=== PATIENT | female | born 1980 | race Caucasian/White ===

== ENCOUNTER → 2020-01-21 08:18 | Outpatient (CLI) | payer OTHER, SELFPAY ==
[2020-01-22 09:01] LABS: COVID19 Sendout Not Detected (Not Detect)
== END ==
PROVIDERS: PCP Internal Medicine; Visit Provider Physician Assistant
DX: Z11.59 Encounter for screening for other viral diseases (principal)
CPT/HCPCS: 87635

== ENCOUNTER → 2020-04-12 08:47 | Outpatient (ROUT) | payer OTHER, SELFPAY ==
[2020-04-12 09:41] LABS: COVID19 -Nasal RAPID Negative (Negative)
== END ==
PROVIDERS: PCP Internal Medicine; Visit Provider Family Medicine
DX: Z20.828 Contact with and (suspected) exposure to other viral communicable diseases (principal)
CPT/HCPCS: 87635

== ENCOUNTER → 2020-09-30 12:51 | Outpatient (ROUT) | payer OTHER, SELFPAY ==
[2020-09-30 13:15] LABS: COVID19 -Nasal RAPID Negative (Negative)
== END ==
PROVIDERS: PCP Internal Medicine; Visit Provider Family Medicine
DX: Z20.822 Contact with and (suspected) exposure to COVID-19 (principal)
CPT/HCPCS: 87635

== ENCOUNTER 2021-06-18 12:44 | Emergency (ER) | payer SELFPAY ==
[2021-06-18 13:02] VITALS: BP 165/88; PULSE 88; RESP 18; TEMP 36.7; O2SAT 98; BMI 31.4
--- NOTE | 2021-06-18 13:13 | ED.BACK ---
HPI - Back Pain/Injury <ENRIQUETA Nicolas - Last Filed: 06/18/21 14:25> General Chief Complaint: Back Pain/Injury Stated Complaint: Back pain x 7 days Time Seen by Provider: 06/18/21 13:04 Source: patient History of Present Illness HPI Narrative: 40-year-old female presents to the emergency department with gradual onset left lumbosacral pain which goes across her buttocks and does not radiate anywhere else and it started approximately 1 week ago. She denies any trauma, injury, states that it has worsened this week and now any movement causes spasm and muscular pain. Patient denies any weakness, numbness or tingling, difficulty ambulating, incontinence, dysuria, fever, abdominal pain, or other. She is a current everyday smoker, denies any neck pain or headache. Patient does not have a primary care provider, she has not had any imaging completed of her spine, she denies any sensation changes in her leg, denies any rash, fever, difficulty ambulating. Related Data Previous Rx's Medication Instructions Recorded lidocaine 5 % topical patch 1 patch TOPICAL DAILY PRN #15 ea 06/18/21 meloxicam 7.5 mg tablet (Mobic) 7.5 mg PO DAILY #14 tab 06/18/21 methocarbamol 500 mg tablet 500 mg PO TID PRN #20 tab 06/18/21 Allergies Allergy/AdvReac Type Severity Reaction Status Date / Time ondansetron Allergy Intermediate HIVES Verified 06/18/21 13:06 Penicillins Allergy Mild A CHILD Verified 06/18/21 13:06 amoxicillin Allergy Unknown Verified 06/18/21 13:06 Review of Systems <ENRIQUETA Nicolas - Last Filed: 06/18/21 14:25> Review of Systems Narrative: General: denies fever, chills, malaise, sweats, fatigue Head/Neck: denies headache, neck pain, dizziness Eyes: denies visual changes, eye pain Cardio: denies chest pain, palpitations, edema Respiratory: denies dyspnea, cough, orthopnea GI: denies abdominal pain, nausea, vomiting, or diarrhea : denies dysuria, hematuria, urinary retention, frequency or incontinence MSK: denies joint pain, muscle weakness, endorses left-sided low back pain laterally across her hip and down her buttock Skin: denies rash, itching, skin lesions or other Neuro: denies numbness, tingling Patient History <ENRIQUETA Nicolas - Last Filed: 06/18/21 14:25> Surgical History Status post delivery Status post hernia repair Status post knee surgery Family History Father Age: 66 Drug abuse Grandmother Age: 91 Breast cancer Mother Age: 66 History of drug abuse in remission Anxiety Social History Smoking Status: Former smoker Smoking Status: Former smoker tobacco type: cigarettes alcohol intake frequency: 0-2 drinks per day Alcohol type: wine and hard liquor Substance Use Type: crack/cocaine Exam <ENRIQUETA Nicolas - Last Filed: 06/18/21 14:25> Narrative Exam Narrative: Independently reviewed vitals signs and nursing notes. General: Cooperative, comfortable, in no acute distress, well developed and well groomed Head/Neck: Normal visual inspection and supple, atraumatic, no JVD or lymphadenopathy. Normal facial exam Eyes: Pupils equal round and reactive, EOMI, conjunctiva normal, no scleral icterus or injections Nose: External nose normal, nares patent, no rhinorrhea, without purulent drainage Mouth/Throat: uvula midline, moist mucus membranes Cardio: Regular rate and rhythm, no peripheral edema, warm extremities Respiratory: Normal respiratory effort, able to speak in complete sentences without audible wheezing, stridor, or rales. No retractions. GI: Abdomen soft, nontender to palpation x4 quadrants, nondistended, no masses or exquisite tenderness with exam, no flank tenderness MSK: Moves all extremities, neurovascularly intact, no point tenderness along the left hip or low back, no spinal tenderness to palpation, no open wound, left buttock pain which patient describes as generalized, Skin: Normal capillary refill, no rash Neuro: Normal speech and cognition, normal gait, A&O x3, tone normal, moves all extremities, equal strength Psych: Mental status is grossly normal, speech is clear, congruent mood, normal affect Initial Vital Signs Initial Vital Signs: Vital Signs Temperature 98.0 F 06/18/21 13:02 Pulse Rate 88 06/18/21 13:02 Respiratory Rate 18 06/18/21 13:02 Blood Pressure 165/88 H 06/18/21 13:02 Pulse Oximetry 98 06/18/21 13:02 <Dalia Arellano DO - Last Filed: 06/18/21 16:38> Initial Vital Signs Initial Vital Signs: Vital Signs Temperature 98.0 F 06/18/21 13:02 Pulse Rate 88 06/18/21 13:02 Respiratory Rate 18 06/18/21 13:02 Blood Pressure 165/88 H 06/18/21 13:02 Pulse Oximetry 98 06/18/21 13:02 Course <ENRIQUETA Nicolas - Last Filed: 06/18/21 14:25> Orders Ordered: ED Orders 06/18/21 13:14 XR lumbar spine 2-3V Stat Discontinued Medications Hydrocodone Bitart/Acetaminophen (Hydrocodone/Acet 5/325 Tablet) 1 tab PO NOW ONE Stop: 06/18/21 13:13 Last Admin: 06/18/21 13:21 Dose: 1 tab Documented by: ALKA Lidocaine (Lidocaine Patch 1 Each Adh..Patch) 1 each TOP NOW ONE Stop: 06/18/21 13:13 Last Admin: 06/18/21 13:21 Dose: 1 each Documented by: ALKA Methocarbamol (Methocarbamol 500 Mg Tablet) 500 mg PO NOW ONE Stop: 06/18/21 13:13 Last Admin: 06/18/21 13:21 Dose: 500 mg Documented by: ALKA Vital Signs Vital signs: Vital Signs - 8 hr 06/18/21 13:02 06/18/21 14:28 Temperature 98.0 F Pulse Rate 88 80 Respiratory Rate 18 16 Blood Pressure 165/88 H 135/80 Pulse Oximetry 98 99 <Dalia Arellano DO - Last Filed: 06/18/21 16:38> Orders Ordered: ED Orders 06/18/21 13:14 XR lumbar spine 2-3V Stat Discontinued Medications Hydrocodone Bitart/Acetaminophen (Hydrocodone/Acet 5/325 Tablet) 1 tab PO NOW ONE Stop: 06/18/21 13:13 Last Admin: 06/18/21 13:21 Dose: 1 tab Documented by: ALKA Lidocaine (Lidocaine Patch 1 Each Adh..Patch) 1 each TOP NOW ONE Stop: 06/18/21 13:13 Last Admin: 06/18/21 13:21 Dose: 1 each Documented by: ALKA Methocarbamol (Methocarbamol 500 Mg Tablet) 500 mg PO NOW ONE Stop: 06/18/21 13:13 Last Admin: 06/18/21 13:21 Dose: 500 mg Documented by: ALKA Vital Signs Vital signs: Vital Signs - 8 hr 06/18/21 13:02 06/18/21 14:28 Temperature 98.0 F Pulse Rate 88 80 Respiratory Rate 18 16 Blood Pressure 165/88 H 135/80 Pulse Oximetry 98 99 MDM - Back Pain/Injury <Umu Painting [facility] - Last Filed: 06/18/21 14:25> Imaging Data lumbar xr: Radiologist's Impression: PROCEDURE:? XR LUMBAR SPINE 2-3V ? INDICATIONS:? lumbosacral pain on rt, no injury ? TECHNIQUE:? 3 views of the lumbar spine were acquired.? ? COMPARISON:? None. ? FINDINGS:? ? Bones:? 5 [id number] vertebrae are present.? There is straightening of normal lordosis.? There is trace retrolisthesis L2 on L3.? Moderate to severe disc and foraminal narrowing are present at L5-S1.? Small anterior osteophytes are present most severe at T12.? No vertebral body compression fractures.? No suspicious bony lesions.? ? Soft tissues:? Overlying bowel gas pattern is normal.? No suspicious soft tissue calcifications.? ? ? IMPRESSION:? Early degenerative changes most notable at L5-S1. ? ? Dictated by: Rocío Biswas M.D. on 06/18/2021 at 14:01 ? ? Approved by: Rocío Biswas M.D. on 06/18/2021 at 14:02 ? [facility] Narrative Medical decision making narrative: 40-year-old female presents to the emergency department chief complaint of left lower back pain which started gradually and has been worsening over the last week with muscle spasms on the left side without sciatica. Patient has been taking ibuprofen 100 mg every 6 hours at home without relief. She is a current everyday smoker, does not have a current PCP, denies any recent trauma, dysuria, fall, or known injury, has been without a fever. She has not had any weakness, denies any sensation changes or paresthesia. Urine dipWithout abnormality, negative, x-ray lumbar spine shows degenerative changes L5-S1 with foraminal narrowing at L5-S1 and small anterior osteophytes at T12. No vertebral body compression fractures or suspicious bony lesions. Patient was given a primary care provider number to establish care and follow-up with PCP for outpatient physical therapy and advanced imaging. Patient was given Robaxin, lidocaine patch, and hydrocodone in the emergency department. She was prescribed Robaxin, lidocaine patches, and Mobic and given instructions on how to take with food and water and not to combine with ibuprofen. Multiple etiologies of back pain considered including; Epidural abscess, cauda equina, mass occupying lesion, lumbar fracture, intra-abdominal pathology chronic neuropathic pain and other considered. Patient is appropriate and amenable to discharge home. Vital signs are stable on repeat examination is unremarkable. Patient has been informed of results. Patient has been given strict return to ER precautions for any new or worsening symptoms. Patient understands to follow up closely with outpatient providers as instructed. Patient understands plan and agrees to discharge home. All questions and concerns answered at this time. Discharge Plan Departure Patient Disposition: Home Clinical Impression: Strain of lumbar region Qualifiers: Encounter type: initial encounter Qualified Code(s): S39.012A - Strain of muscle, fascia and tendon of lower back, initial encounter Instructions: DI for Low Back Pain, DI for Back Spasm, DI for Back Strain or Sprain Activity Restrictions/Additional Instructions: *You have been diagnosed with a spasm of your low back. Please call [phone] to establish a primary care provider. Please continue using the lidocaine patches for the next few days until your pain subsides. I have prescribed you a strong anti-inflammatory called Mobic, please do not take any ibuprofen with this and eat food and drink water. You may take 1 of these per day for the next 2 weeks with food and water. For muscle spasms, you may use the methocarbamol every 8 hours as needed. Please use heat 2 to 3 times a day, rest, decrease her activity level so the flare can calm down. If this is still ongoing after you have tried all of these things, please follow-up and establish care with a primary care provider so that you can try physical therapy and get in order for advanced imaging if necessary. I hope you feel better soon. I have appended your x-ray results below. The impressions says degenerative changes at the L5-S1 junction which is in ice way of saying arthritis. Please establish care with a primary care provider and follow up with physical therapy. They may be able to refer you to orthopedics if this is ongoing. *What to do: *Please continue to take your regular medications as directed. [ ] New medication prescriptions sent to your pharmacy: [ ] [ ] New medication written as a paper prescription [ ] No new medications given *Please follow up with your primary care provider in 2-3 days, call for an appointment. Let them know you were seen in the Emergency Department and that we ask that you be seen in follow up. We will electronically transmit a record of today's note if your PCP is in our system *If you do not have a primary care provider please contact the [facility] Resource line at [phone]. They will ask some questions about your medical history and help get you set up with a doctor in the community. *Return to Emergency Department if you should have any new, worsening or concerning symptoms, such as [fever greater than 101F, chills, worsening pain, persistent vomiting or other bothersome symptoms] PROCEDURE:? XR LUMBAR SPINE 2-3V ? INDICATIONS:? lumbosacral pain on rt, no injury ? TECHNIQUE:? 3 views of the lumbar spine were acquired.? ? COMPARISON:? None. ? FINDINGS:? ? Bones:? 5 rud-[id number]-[id number] vertebrae are present.? There is straightening of normal lordosis.? There is trace retrolisthesis L2 on L3.? Moderate to severe disc and foraminal narrowing are present at L5-S1.? Small anterior osteophytes are present most severe at T12.? No vertebral body compression fractures.? No suspicious bony lesions.? ? Soft tissues:? Overlying bowel gas pattern is normal.? No suspicious soft tissue calcifications.? ? ? IMPRESSION:? Early degenerative changes most notable at L5-S1. ? ? Dictated by: Rocío Biswas M.D. on 06/18/2021 at 14:01 ? ? Approved by: Rocío Biswas M.D. on 06/18/2021 at 14:02 ? Prescriptions: New lidocaine 5 % adhesive patch,medicated 1 patch topical DAILY PRN (Reason: back pain) Qty: 15 0RF Rx Instructions: leave on most painful area for up to 12 hrs methocarbamol 500 mg tablet 500 mg PO TID PRN (Reason: muscle spasms) Qty: 20 0RF meloxicam [Mobic] 7.5 mg tablet 7.5 mg PO DAILY Qty: 14 0RF <Dalia Arellano, - Last Filed: 06/18/21 16:38> Cosign ED Attending Ronny Attestation: I was immediately available in the department for consultation. Documentation has been reviewed.
--- NOTE | 2021-06-18 13:14 | DI.RAD.S_ITS ---
PROCEDURE: XR LUMBAR SPINE 2-3V INDICATIONS: lumbosacral pain on rt, no injury TECHNIQUE: 3 views of the lumbar spine were acquired. COMPARISON: None. FINDINGS: Bones: 5 [id number] vertebrae are present. There is straightening of normal lordosis. There is trace retrolisthesis L2 on L3. Moderate to severe disc and foraminal narrowing are present at L5-S1. Small anterior osteophytes are present most severe at T12. No vertebral body compression fractures. No suspicious bony lesions. Soft tissues: Overlying bowel gas pattern is normal. No suspicious soft tissue calcifications. IMPRESSION: Early degenerative changes most notable at L5-S1. Dictated by: Rocío Biswas M.D. on 06/18/2021 at 14:01 Approved by: Rocío Biswas M.D. on 06/18/2021 at 14:02
[2021-06-18] MEDS: methocarbamoL 500 MG TABLET PO (13:21)
[2021-06-18] MEDS: LIDOCAINE PATCH 1 EACH ADH..PATCH TOP (13:21)
[2021-06-18] MEDS: HYDROCODONE/ACET 5/325 TABLET 1 TAB PO (13:21)
[2021-06-18 14:28] VITALS: BP 135/80; PULSE 80; RESP 16; O2SAT 99
== END 2021-06-18 14:28 | disposition home or self-care (01) ==
PROVIDERS: Emergency Provider Nurse Practitioner Critical Care Medicine
DX: S39.012A Strain of muscle, fascia and tendon of lower back, initial encounter (principal); X58.XXXA Exposure to other specified factors, initial encounter
CPT/HCPCS: 72100; 99283; 99284

== ENCOUNTER → 2023-07-16 17:38 | Outpatient (CLI) | payer OTHER, SELFPAY ==
--- NOTE | 2023-07-16 17:41 | DI.MG.S_ITS ---
BILATERAL DIGITAL SCREENING MAMMOGRAM 3D/2D WITH CAD: 07/16/2023 CLINICAL: Baseline exam. Routine screening. Family History of Breast Cancer. No prior exams were available for comparison. There are scattered areas of fibroglandular density in both breasts (category b / 25%-50% glandular tissue). Current study was also evaluated with a Computer Aided Detection (CAD) system. No significant masses, calcifications, or other findings are seen in either breast. IMPRESSION: NEGATIVE There is no mammographic evidence of malignancy. A 1 year screening mammogram is recommended. Based on the Tyrer Cuzick model (a risk assessment model) the patient's lifetime risk is 7.5% and her 10 year risk is 1.1%. According to the ACR, ACS, and NCCN guidelines, an annual breast MRI exam along with mammogram is recommended if the patient's lifetime risk is 20% or greater. This exam was interpreted at Station ID: [id number]. NOTE: For mammograms, a report in lay terms will be sent to the patient. Approximately 15% of breast malignancies will not be visualized mammographically. In the management of a palpable breast mass, a negative mammogram must not discourage biopsy of a clinically suspicious lesion. Electronically Signed By: Bradley booth/guillermo:07/17/2023 17:34:23 letter sent: Normal Exam ACR BI-RADS Category 1: Negative 3341F
== END ==
PROVIDERS: PCP Registered Nurse; Referring Provider Registered Nurse; Visit Provider Registered Nurse
DX: Z12.31 Encounter for screening mammogram for malignant neoplasm of breast (principal); Z85.3 Personal history of malignant neoplasm of breast
CPT/HCPCS: 77063; 77067

== ENCOUNTER 2023-09-14 12:42 | Day surgery (SDC) | payer OTHER, SELFPAY ==
--- NOTE | 2023-09-14 | PATH_ITS ---
[facility] Accession Number: [id number] No. of containers..01 Tissue . 01 Material submitted: . esophagus, E-G Junction - GE JUNCTION BX . 01 Diagnosis: GASTROESOPHAGEAL JUNCTION, BIOPSY: Squamous epithelium with no diagnostic abnormality. Intraepithelial eosinophils are not increased. Negative for dysplasia and malignancy. MRV 09/21/2023 1637 Local . 01 Electronically signed: . Umu Trinh MD, Pathologist NPI- [id number] . 01 Gross description: . GE JUNCTION BX: Received in formalin are 3 fragment(s) of guerra, soft tissue measuring 0.1 x 0.1 x 0.1 cm to 0.3 x 0.2 x 0.2 cm submitted entirely in 1 cassette(s) /PARMJIT 09/18/2023 2257 Local . 01 Microscopic: . An AB/PAS stain was performed to evaluate for fungal organisms and is negative. The control stain showed appropriate reactivity. . 01 Pathologist provided ICD-10: K21.9 . 01 CPT . 587818, [id number] Performed at: [address] [facility] [address], [place], [place] [id number] MD Jesús Pires MD Phone: [phone]
[2023-09-14] MEDS: LACTATED RINGERS 1,000 ML 42 ML IV (13:00)
[2023-09-14 13:12] VITALS: BP 131/89; PULSE 86; RESP 18; TEMP 35.7; O2SAT 97
--- NOTE | 2023-09-14 13:49 | PM.HP.1 ---
History of Present Illness History of Present Illness Date Patient Seen: 09/14/23 Time Patient Seen: 13:49 Chief complaint: EGD Narrative: 42-year-old woman here for diagnostic upper endoscopy. Long history of GERD with occasional esophageal dysphagia.. No interval change in health. Please refer to the H& P from July 26, 2023 for further detail. [facility] Medical History Hypertension Surgical History Status post delivery Status post knee surgery Status post hernia repair Family History Father Age: 69 Drug abuse Grandmother Age: 94 Breast cancer Mother Age: 69 History of drug abuse in remission Anxiety Hypertension Social History marital status: unknown details: Pt. lives with adult daughter household members: family lives independently: Yes occupational status: employed Smoking Status: Current every day smoker alcohol intake: current substance use type: does not use Meds Home Medications and Allergies Home Medications Medication Instructions Recorded Confirmed Type losartan 25 mg tablet 25 mg PO DAILY 08/09/23 09/14/23 History omeprazole 40 mg PO DAILY 08/09/23 09/14/23 History Allergies Allergy/AdvReac Type Severity Reaction Status Date / Time ondansetron Allergy Intermediate HIVES Verified 09/14/23 13:12 Penicillins Allergy Mild A CHILD Verified 09/14/23 13:12 amoxicillin Allergy Unknown Verified 09/14/23 13:12 Exam Vital Signs (past 8 hours): - 09/14/23 13:12 Temperature 96.3 F L Pulse Rate 86 Respiratory Rate 18 Blood Pressure 131/89 Pulse Oximetry 97 Oxygen Delivery Method Room Air Oxygen Delivery Method Room Air Narrative Exam Narrative: General adult woman alert oriented no acute distress Chest nonlabored respiration Extremities warm well perfused Assessment & Plan Assessment & Plan narrative: 42-year-old woman with chronic GERD here for EGD. Technical details were discussed. Risks, benefits, alternatives explained. Risks including but not limited to myocardial infarction, aspiration, bleeding, pain, need for further radiographic studies, intestinal injury, and need for major abdominal surgery were discussed. All questions were answered to their satisfaction, and they are in agreement with this plan.
[2023-09-14 14:10] VITALS: BP 115/76; PULSE 64; RESP 12; TEMP 36.1; O2SAT 95
[2023-09-14 14:14] VITALS: BP 112/81; PULSE 59; RESP 12; O2SAT 96
--- NOTE | 2023-09-14 14:14 | PM.OP.EGD ---
Operative Date/Time/Diagnoses Date of procedure: 09/14/23 Time of procedure: 14:14 Pre-op diagnosis: Chronic GERD Esophageal dysphagia Procedure & Clinicians Study performed: Diagnostic esophagogastroduodenoscopy Same procedure as scheduled: Yes Indications: Chronic GERD New esophageal dysphagia Surgeon: Clemente Ambrose Procedure Notes Procedure in detail: The history and physical was performed/updated and the patient is ASA class is 2. The procedure was discussed in detail with the patient. Potential risks complications including infection, bleeding, missed diagnosis, perforation, need for surgery, and were explained. Their questions were answered and informed consent was obtained. Patient placed in left lateral decubitus position. Time out was performed. Procedural sedation was administered by Anesthesia. A bite block was placed. the scope was inserted into the mouth and advanced through the esophagus and into the stomach. The pylorus was intubated and the duodenum was examined to the 2nd portion. The scope was then withdrawn into the stomach and was retroflexed. The stomach was decompressed and scope was withdrawn slowly through the esophagus. Biopsy of the GE junction was performed with forceps FINDINGS -esophagitis -no esophageal stricture -no fernando Barretts esophagus The patient tolerated the procedure well and will be discharged when they meet criteria. Specimen(s): other (Esophagus) Impression: Esophagitis Post-procedure Plan for aftercare: Tobacco cessation which is significantly contributing to GERD Disposition: same day surgery
[2023-09-14 14:19] VITALS: BP 118/80; PULSE 55; RESP 14; O2SAT 96
[2023-09-14 14:24] VITALS: BP 125/90; PULSE 95; RESP 16; TEMP 36.1; O2SAT 99
== END 2023-09-14 14:38 | disposition home or self-care (01) ==
PROVIDERS: PCP Registered Nurse; Referring Provider Surgery; Visit Provider Surgery
PROC: 0DJ08ZZ Inspection of Upper Intestinal Tract, Via Natural or Artificial Opening Endoscopic (ICD-10-PCS; CPT 43235; principal; 2023-09-14 13:30)
DX: K21.00 Gastro-esophageal reflux disease with esophagitis, without bleeding (principal)
CPT/HCPCS: 43239; J2704; J3010